=== PATIENT | female | born 1945 | race Two or more races ===

== ENCOUNTER 2025-01-07 22:06 | Inpatient (IN) | payer MEDICARE, OTHER ==
[~2025-01-07] VITALS: Ht 167.6 cm; Wt 70.3 kg
[2025-01-07] MEDS ORDERED: DIVA500T4 PO (22:48)
[2025-01-07] MEDS ORDERED: AMLO-212 PO (22:48)
[2025-01-07] MEDS ORDERED: CHOL100040 PO (22:48)
[2025-01-07] MEDS ORDERED: APIX2.5T PO (22:48)
[2025-01-07] MEDS ORDERED: LOSA25TA27 PO (22:48)
[2025-01-07] MEDS ORDERED: LEVO25TA7 PO (22:48)
[2025-01-07] MEDS ORDERED: DIVA250T PO (22:48)
[2025-01-07] MEDS ORDERED: ATOR20TA PO (22:48)
[2025-01-07 22:52] LABS: PLATELET COUNT (AUTO) 157 K/uL (150-450); RED BLOOD CELL COUNT(AUTO) 3.60 MIL/uL (4.0-5.2); RED CELL DISTRIBUTION WIDTH 14.3 % (11.5-15.0); WHITE BLOOD COUNT (AUTO) 7.3 K/uL (4.3-11.0)
[2025-01-07 23:08] LABS: ALCOHOL, BLOOD < 3 mg/dL (0-10); ASPARTATE AMINOTRANSFERASE 20 U/L (15-37); CALCIUM, SERUM 8.4 mg/dL (8.5-10.1); CREATININE 1.0 mg/dL (0.6-1.3); SODIUM SERUM 142 mmol/L (136-145); TOTAL PROTEIN, SERUM 6.7 g/dL (6.4-8.2); UREA NITROGEN, BLOOD 32 mg/dL (7-18)
[2025-01-07 23:20] LABS: SERUM AMMONIA 10 umol/L (11-32)
[2025-01-08 00:02] LABS: APPEARANCE,URINE SLIGHTLY CLOUDY (CLEAR); BLOOD, URINE TRACE-INTA Ery/uL (NEGATIVE); LEUKOCYTE ESTERASE ,URINE 1+ (NEGATIVE); NITRITE, URINE POSITIVE (NEGATIVE); UGLUCOSE NEGATIVE (NEGATIVE)
[2025-01-08 00:16] LABS: ADD URINE CULTURE YES
[2025-01-08 00:18] LABS: SQUAMOUS EPITHELIAL CELL,UR Many /HPF (None Seen)
[2025-01-08 00:22] LABS: AMPHETAMINE, URINE NEGATIVE (NEGATIVE); BARBITURATE, URINE NEGATIVE (NEGATIVE); BENZODIAZEPINE, URINE NEGATIVE (NEGATIVE); CANNABINOID, URINE NEGATIVE (NEGATIVE); COCCAINE, URINE NEGATIVE (NEGATIVE); OPIATE, URINE NEGATIVE (NEGATIVE)
[2025-01-08] MEDS ORDERED: CEFTRIAXONE 1GM BAG (ER ONLY) 50 ML IV ONE (02:12)
[2025-01-08] MEDS: CEFTRIAXONE 1 G in IV D5W 50 ML IV ONE (02:23)
[2025-01-08] MEDS ORDERED: ZOLPIDEM TARTRATE 5 MG TABLET PO PRN ×2 (04:30)
[2025-01-08] MEDS ORDERED: MAG HYDROX/AL HYDROX/SIMETH 30 ML UDC PO PRN (04:30)
[2025-01-08] MEDS ORDERED: MAGNESIUM HYDROXIDE 30 ML UDC PO PRN (04:30)
[2025-01-08] MEDS ORDERED: ACETAMINOPHEN 325 MG TABLET PO PRN ×2 (04:30→11:30)
[2025-01-08] MEDS: BLOOD SUGAR DIAGNOSTIC 1 EACH STRIP IN ONE (04:42)
[2025-01-08 06:04] VITALS: BP 121/54; TEMP 98; O2SAT 100
[2025-01-08 08:00] VITALS: BP 126/66; TEMP 97.7; O2SAT 98
[2025-01-08] MEDS ORDERED: DIVA-76 PO (08:17)
[2025-01-08] MEDS ORDERED: ACET325T53 PO (08:17)
[2025-01-08] MEDS: LORAZEPAM 1 MG TABLET PO PRN (09:00)
[2025-01-08] MEDS: OLANZAPINE 10 MG VIAL IM ONE (11:26)
[2025-01-08] MEDS: LOSARTAN POTASSIUM 25 MG TABLET PO SCH (11:30)
[2025-01-08] MEDS: APIXABAN 2.5 MG TABLET PO SCH (12:06)
[2025-01-08] MEDS: AMLODIPINE BESYLATE 5 MG TABLET PO SCH (12:07)
[2025-01-08] MEDS: LEVOTHYROXINE SODIUM 25 MCG TABLET PO SCH (12:07)
[2025-01-08] MEDS: CHOLECALCIFEROL 1,000 UNIT TABLET (VIT D3) PO SCH (12:10)
[2025-01-08 16:10] VITALS: BP 128/62; TEMP 98.2; O2SAT 96
[2025-01-08 19:58] VITALS: BP 126/53; TEMP 97.5; O2SAT 99
[2025-01-08] MEDS: ATORVASTATIN 40 MG TABLET PO SCH (21:16)
[2025-01-09] MEDS: LORAZEPAM 0.5 MG TABLET PO PRN (07:46)
[2025-01-09] MEDS: OLANZAPINE ZYDIS 5 MG TAB.RAPDIS PO SCH (09:00)
[2025-01-09] MEDS: DIVALPROEX SODIUM 250 MG TABLET.DR PO SCH (09:00)
[2025-01-09] MEDS: SULFAMETH/TRIMETH 800/160 MG 1 UDTAB TABLET PO SCH (09:00)
[2025-01-09 19:50] VITALS: BP 132/67; TEMP 97.9; O2SAT 100
[2025-01-09 20:00] VITALS: BP 132/67; TEMP 97.9; O2SAT 100
[2025-01-10 16:00] VITALS: BP 104/52; TEMP 97.8; O2SAT 100
[2025-01-11 08:00] VITALS: BP 117/59; TEMP 97.8; O2SAT 97
[2025-01-11 16:00] VITALS: BP 100/51; TEMP 97.9; O2SAT 97
[2025-01-11 20:00] VITALS: BP 125/69; TEMP 97.8; O2SAT 100
[2025-01-12] MEDS ORDERED: Z GUARD REMEDY 4 OZ OINT TP PRN (07:00)
[2025-01-12 08:00] VITALS: BP 114/53; TEMP 97.7; O2SAT 98
[2025-01-12 16:00] VITALS: BP 105/81; TEMP 97.8; O2SAT 98
[2025-01-12 20:16] VITALS: BP 105/72; TEMP 97.8; O2SAT 99
[2025-01-13 08:00] VITALS: BP 111/52; TEMP 97.7; O2SAT 97
[2025-01-13 16:00] VITALS: BP 118/50; TEMP 98.2; O2SAT 95
[2025-01-13 20:35] VITALS: BP 104/53; TEMP 98.2; O2SAT 98
[2025-01-14 08:00] VITALS: BP 123/54; TEMP 97.8; O2SAT 100
[2025-01-14 16:00] VITALS: BP 96/48; TEMP 98.5; O2SAT 99
[2025-01-14 19:54] VITALS: BP 105/56; TEMP 98.2; O2SAT 98
[2025-01-15 08:00] VITALS: BP 115/52; TEMP 97.8; O2SAT 100
[2025-01-15 16:00] VITALS: BP 115/66; TEMP 97.9; O2SAT 99
[2025-01-15] MEDS: OLANZAPINE ZYDIS 5 MG TAB.RAPDIS PO SCH (16:10)
[2025-01-15 20:06] VITALS: BP 126/56; TEMP 97.9; O2SAT 98
[2025-01-16 08:00] VITALS: BP 115/55; TEMP 97.8; O2SAT 100
[2025-01-16 16:00] VITALS: BP 113/54; TEMP 98.9; O2SAT 97
[2025-01-16 19:57] VITALS: BP 111/56; TEMP 97.9; O2SAT 97
[2025-01-17 08:00] VITALS: BP 128/43; TEMP 98.7; O2SAT 100
[2025-01-17 16:00] VITALS: BP 111/62; TEMP 97.9; O2SAT 99
[2025-01-17 19:41] VITALS: BP 122/83; TEMP 97.9; O2SAT 98
[2025-01-18 08:00] VITALS: BP 129/54; TEMP 97.8; O2SAT 94
[2025-01-18 09:08] VITALS: BP 129/54
== END 2025-01-18 14:15 | DRG 885 ==
LOC: ER 22:08 → GPS 01-08 03:15
PROVIDERS: ADMIT Psychiatry & Neurology Psychiatry; ATTEND Internal Medicine
DX: F39 Unspecified mood [affective] disorder (principal); N39.0 Urinary tract infection, site not specified; D68.69 Other thrombophilia; F03.93 Unspecified dementia, unspecified severity, with mood disturbance; F03.92 Unspecified dementia, unspecified severity, with psychotic disturbance; F29 Unspecified psychosis not due to a substance or known physiological condition; I10 Essential (primary) hypertension; I48.91 Unspecified atrial fibrillation; E03.9 Hypothyroidism, unspecified; E78.5 Hyperlipidemia, unspecified; Z79.01 Long term (current) use of anticoagulants; Z20.822 Contact with and (suspected) exposure to COVID-19; F32.A Depression, unspecified; B96.20 Unspecified Escherichia coli [E. coli] as the cause of diseases classified elsewhere; Z79.899 Other long term (current) drug therapy
CPT/HCPCS: 36415; 80053-TC; 81001; 82140-TC; 85025-TC; 87081-TC; 87086-TC; 87186-TC; 97110-TC; 97116-TC; 97530-TC; G0480; J0696; J3490; J7060